=== PATIENT | male | born 1990 ===

== ENCOUNTER 2017-06-28 05:29 | Emergency (ER) | payer OTHER ==
[2017-06-28 05:44] VITALS: BMI 25.8
[2017-06-28 05:47] VITALS: RESP 17; TEMP 98
--- NOTE | 2017-06-28 05:59 | ED PDOC ---
Lower Extremity Pain/Injury Time Seen by Provider: 06/28/17 05:40 Chief Complaint (Nursing): Lower Extremity Problem/Injury Chief Complaint (Provider): lower extremity problem History Per: Patient History/Exam Limitations: no limitations Onset/Duration Of Symptoms: Hrs (8pm) Current Symptoms Are (Timing): Still Present Additional Complaint(s): 27 year old male presents to the ED complaining of right foot injury. Patient was playing volleyball at 8p yesterday. He jumped and landed on someone elses foot and his foot rolled inwards. Patient applied brace on the foot which he had at home but when he took it off there was pain. Denies of taking any medication prior to arrival or any other injuries. PMD: Provider TBD - Ankle/Foot Description Of Injury: Fell Currently Unable To: Bear Weight Past Medical History Reviewed: Historical Data, Nursing Documentation, Vital Signs Vital Signs: Last Vital Signs Temp 98.0 F 06/28/17 05:40 Pulse 80 06/28/17 05:40 Resp 17 06/28/17 05:40 BP 136/88 06/28/17 05:40 Pulse Ox 98 06/28/17 05:40 - Medical History PMH: No Chronic Diseases - Family History Family History: States: Unknown Family Hx - Allergies Allergies/Adverse Reactions: Allergies Allergy/AdvReac Type Severity Reaction Status Date / Time No Known Allergies Allergy Verified 11/26/15 02:02 Review of Systems ROS Statement: Except As Marked, All Systems Reviewed And Found Negative Musculoskeletal: Positive for: Foot Pain (right) Psych: Negative for: Suicidal ideation (homicidal ideation) Physical Exam - Reviewed Nursing Documentation Reviewed: Yes Vital Signs Reviewed: Yes - Physical Exam Appears: Positive for: Well, Non-toxic, No Acute Distress Head Exam: Positive for: ATRAUMATIC, NORMAL INSPECTION, NORMOCEPHALIC Skin: Positive for: Normal Color, Warm, Dry Extremity: Positive for: Tenderness (base of 5th metatarsal; mild lateral and medial malleoli), Swelling (ecchymosis to right lateral side of foot), Other ( Distal pulse intact and able to wiggle toes; able to plantar flex and dorsiflex) Neurologic/Psych: Positive for: Alert, Oriented (x3) - ECG O2 Sat by Pulse Oximetry: 98 (RA) Pulse Ox Interpretation: Normal Medical Decision Making Medical Decision Making: Time: 05 Impression: Foot and Ankle pain. Sprain versus fracture Initial Plan: --Motrin 600mg --Apply ice to affected area --Ankle right 3 views [RAD] --Foot right views [RAD] --Reevaluation Time: 607 Xray shows fracture on base of 5th metatarsal. Podiatry consulted. [address] Monroe pending podiatry eval. Scribe Attestation: Documented by Yunior Burton, acting as a scribe for Milton Gunn MD Provider Scribe Attestation: All medical record entries made by the Scribe were at my direction and personally dictated by me. I have reviewed the chart and agree that the record accurately reflects my personal performance of the history, physical exam, medical decision making, and the department course for this patient. I have also personally directed, reviewed, and agree with the discharge instructions and disposition. Disposition - Clinical Impression Clinical Impression: Fracture of base of fifth metatarsal bone - Patient ED Disposition Is Patient to be Admitted: Transfer of Care - Disposition Disposition: Transfer of Care Disposition Time: 07:00 Condition: STABLE Forms: [employer] ([place]) Patient Signed Over To: Lizzie Monroe Handoff Comments: pending eval by podiatry
--- NOTE | 2017-06-28 07:28 | ED PDOC ---
- ECG O2 Sat by Pulse Oximetry: 98 (RA) Medical Decision Making Medical Decision Making: patient seen by podiatry. posterior splint applied by resident. patient to followup with Dr. Mesa. Disposition Doctor Will See Patient In The: Office Counseled Patient/Family Regarding: Diagnosis, Need For Followup, Rx Given - Clinical Impression Clinical Impression: Fracture of base of fifth metatarsal bone - POA Present On Arrival: Falls Or Trauma - Disposition Referrals: Ray Mesa MD [Staff Provider] - [employer] [facility] [Outside] Disposition: Routine/Home Disposition Time: 07:28 Condition: STABLE Prescriptions: Naproxen [Naprosyn] 500 mg PO BID PRN #20 tablet PRN Reason: Pain, Moderate (4-7) Instructions: Foot Fracture (DC) Forms: [employer] ([place]), [facility] ED School/Work Excuse
[2017-06-28 08:10] VITALS: BP 128/74; PULSE 68; O2SAT 99
--- NOTE | 2017-06-28 09:14 | CP.PCM.CON ---
History of Present Illness - History of Present Illness History of Present Illness: Podiatry consult note: Dr. Mesa 27 year old male patient with no significant PMHx was seen and evaluated at bedside in ED for right foot pain. Patient reports that he was playing volleyball yesterday evening and while spiking the ball he landed incorrectly and twisted his foot. Patient reports that after the incident he sat out for the game and went home. Admits to walking after the injury. Patient states that he did not feel pain after the injury but overnight his pain increased. Reports that his pain was about 5/10 on a VAS overnight and is about 1/10 now. Patient denies of having any recent F/N/V/C/SOB/CP/ Denies of any other complains now. PMHx: Deneis PSHx: Denies Allergies: N.K.D.A SHx: Denies smoking or any illicit drug usage; occasional EtOH consumption Review of Systems - Constitutional Constitutional: As Per HPI Past Patient History - Past Social History Smoking Status: Unknown If Ever Smoked - PSYCHIATRIC Hx Substance Use: No Meds Home Medications: Home Medication List Medication Instructions Recorded Confirmed Type Naproxen [Naprosyn] 500 mg PO BID PRN #20 tablet 06/28/17 Rx Allergies/Adverse Reactions: Allergies Allergy/AdvReac Type Severity Reaction Status Date / Time No Known Allergies Allergy Verified 11/26/15 02:02 Physical Exam - Constitutional Appears: Well, Non-toxic, No Acute Distress - Extremities Exam Additional comments: Right LE focused exam: VASC: DP/PT pulses are palpable 2/4, Cap refill time: < 3 sec to all digits, Temp gradient: warm to cool from proximal to distal, very minimal non-pitting edema noted on dorso-lateral aspect of the right foot DERM: No open lesions, no erythema or ecchymosis noted NEURO: Protective sensation grossly intact ORTHO: AROM at the AJ intact in all 4 direction with mild tenderness during eversion, pain during PROM on inversion and eversion but no pain during dorsiflexion and plantarflexion; MMT: 4/5 during eversion and inversion; 5/5 on DF and PF; pain on palpation of the base of the 5th metatarsal, no pain on palpation of the lateral malleolus, mild pain on palpation along the course of the peroneal tendons distal to lateral malleolus, no pain on palpation of the lateral collateral ligaments, mild pain on palpation of the medial collateral ligaments at the ankle joint, no pain on palpation of the achilles tendon - Neurological Exam Neurological exam: Alert, Oriented x3 - Psychiatric Exam Psychiatric exam: Normal Affect, Normal Mood Results - Vital Signs Recent Vital Signs: Last Vital Signs Temp 98.0 F 06/28/17 08:09 Pulse 68 06/28/17 08:09 Resp 17 06/28/17 08:09 BP 128/74 06/28/17 08:09 Pulse Ox 99 06/28/17 08:09 Assessment & Plan - Assessment and Plan (Free Text) Assessment: 27 year old male with no significant PMHx evaluated for right 5th metatarsal avulsion fracture (Joe II) Plan: Patient seen and evaluated Discussed in details with attending Dr. Moshe Schwartz reviewed X-rays of the foot and ankle ordered/reviewed - Transverse radiolucent line noted at the base of the 5th metatarsal consistent with a fracture with increase in soft tissue radiodensity indicating soft tissue swelling. Patient educated of the findings Educated of RICE protocol Patient placed in a guillory compressive dressing and well padded short leg cast applied - Active ROM at the digits intact and Cap refill time: < 3 sec after the application of the cast. 1 fingerbreath space between the cast the RLE Educated patient to remain NWB to the RLE and crutches provided - proper crutch training provided Educated patient the course of treatment Educated to follow up with Dr. Mesa Patient demonstrated verbal understanding of the following plain Thank you for the consult and allowing to take part in patient care - Date & Time Date: 06/28/17 Time: 07:00
--- NOTE | 2017-06-28 10:38 | RAD ---
PROCEDURE: Right Ankle Radiographs. HISTORY: trauma COMPARISON: None FINDINGS: BONES: Nondisplaced fracture base of 5th metatarsal. Inadequately evaluated on the basis of this examination. No other fracture identified. JOINTS: Normal. No osteoarthritis. Ankle mortise maintained. Talar dome intact SOFT TISSUES: Normal. OTHER FINDINGS: None. IMPRESSION: Nondisplaced fracture base of 5th metatarsal.
--- NOTE | 2017-06-28 10:39 | RAD ---
PROCEDURE: Right Foot Radiographs. HISTORY: trauma, TTP at base of 5th metatarsal, swelling COMPARISON: None. FINDINGS: BONES: Nondisplaced fracture base of 5th metatarsal. No other fracture identified. JOINTS: Normal. SOFT TISSUES: Normal. OTHER FINDINGS: None. IMPRESSION: Nondisplaced fracture base of 5th metatarsal. No additional abnormality.
== END 2017-06-28 07:55 | disposition home or self-care (01) ==
LOC: H.ER 05:29
DX: S92.351A Displaced fracture of fifth metatarsal bone, right foot, initial encounter for closed fracture (principal); X50.9XXA Other and unspecified overexertion or strenuous movements or postures, initial encounter; Y93.68 Activity, volleyball (beach) (court)